=== PATIENT | female | born 1980 | race Caucasian/White ===

== ENCOUNTER 2020-06-13 15:03 | Emergency (ER) | payer OTHER, SELFPAY ==
[2020-06-13 16:02] VITALS: BP 209/129; PULSE 93; RESP 16; TEMP 36.7; O2SAT 100; BMI 23.0
--- NOTE | 2020-06-13 16:03 | ED.SKABFB ---
HPI - Skin/Abscess/Foreign Bdy General Chief complaint: Skin/Abscess/Foreign Body Stated complaint: cyst stomach area Time Seen by Provider: 06/13/20 16:03 Source: patient Mode of arrival: ambulatory Limitations: no limitations History of Present Illness HPI narrative: Patient concerned that she has an abscess to her abdomen, has been squeezing but nothing will come out complaint: abscess/boil Onset (ago): day(s) Tetanus up to date: yes Severity: mild Related Data Previous Rx's Medication Instructions Recorded cephalexin [Keflex] 500 mg PO QID #28 cap 06/13/20 Allergies Allergy/AdvReac Type Severity Reaction Status Date / Time erythromycin base AdvReac Unknown VOMITING Verified 06/13/20 16:10 [From ERYTHROCIN] shellfish derived AdvReac Unknown VOMITING Verified 06/13/20 16:10 [SHELLFISH DERIVED] Review of Systems Constitutional: Constitutional: Reports no additional constitutional complaints Eyes: Eyes: Reports no additional eye complaints ENT: Denies dizziness Cardiovascular: Cardiovascular: Reports no additional cardiovascular complaints Respiratory: Respiratory: Reports as per HPI Gastrointestinal: Gastrointestinal: Reports no additional gastrointestinal complaints Genitourinary: Genitourinary: Reports no additional female genitourinary complaints Musculoskeletal: Musculoskeletal: Reports no additional musculoskeletal complaints Integumentary/Breasts: Skin/Breast: Denies rash Neurologic: Reports system reviewed and no additional complaints, except as documented, Denies dizziness and Denies Sensory deficit (Neuro) Psychiatric: Psychiatric: Reports anxiety [facility] Past Medical History Medical History Acute anxiety Depression HTN (hypertension) Social History Social History Smoking Status: Former smoker Smoked in Last 30 Days: No Use of substances other than those prescribed or required for medical reasons: No Physical Exam Const: Other: anxious General: healthy appearing Nutritional Appearance: average body habitus Orientation/consciousness: oriented to person and patient oriented x3 Limitations: no limitations HENMT: Head: Yes normal to inspection Ears: external ears normal General nose exam: Normal external nose present Mouth: Normal oral and palatal mucosa present and oropharynx normal Throat: Yes posterior oropharynx normal Eyes: General: appearance normal, both eyes and all related structures Neck: Other: supple Neck: Yes normal visual inspection Chest: Chest palpation & inspection: normal inspection of the chest Resp: Auscultation: clear to auscultation bilaterally Cardio: Jugular venous distension: no JVD Rate: regular rate Rhythm: regular rhythm Heart sounds: S1 normal heart sound present and S2 normal heart sound present GI: Inspection: Yes normal to inspection Palpation (GI): Soft to palpation, nontender and No hepatosplenomegaly present Auscultation: normal bowel sounds : General: Yes no CVA tenderness Back/Spine/Pelvis: Back: no CVA tenderness Skin: Other: erythema to abdomen with small pustule, bedside ultrasound reveals not fluid collection Neuro: General: oriented to person and patient oriented x3 Cranial nerves: Yes CN's II-XII intact bilaterally Motor exam (neuro): 5/5 motor strength present throughout Sensory Exam: No Sensory deficit (Neuro) Extrem: General: Yes normal to inspection Psych: Appearance: grossly normal Course Course Course Narrative: no fluid collection on bedside ultrasound will place on keflex and warm soaks MDM - Skin/Abscess/Foreign Bdy MDM Narrative Medical decision making narrative: small localized papule with slight erythema Discharge Plan Discharge Clinical Impression: Cellulitis Patient Disposition: Home, Self-Care Instructions: Cellulitis (ED), Abscess (ED) Additional Instructions: warm compresses to affected area. Follow up with your doctor for your blood pressure Prescriptions: New cephalexin [Keflex] 500 mg capsule 500 mg PO QID Qty: 28 RF: 0 Referrals: Physician,None [Primary Care Provider] - 2 days
[2020-06-13 16:50] VITALS: BP 160/90
== END 2020-06-13 17:02 | disposition home or self-care (01) ==
LOC: HO.ED 16:21
PROVIDERS: Emergency Provider Emergency Medicine; PCP Nurse Practitioner
DX: L03.311 Cellulitis of abdominal wall (principal); I10 Essential (primary) hypertension; Z79.899 Other long term (current) drug therapy; Z87.891 Personal history of nicotine dependence
CPT/HCPCS: 99283; 99284

== ENCOUNTER 2021-08-05 05:30 | Emergency (ER) | payer OTHER, SELFPAY ==
[2021-08-05 05:32] VITALS: BP 148/87; PULSE 106; RESP 16; TEMP 36.9; O2SAT 96; BMI 24.7
[2021-08-05 06:11] LABS: COVID-19 Test Negative (Negative); IDNOW Serial# 9DD0AD1C
--- NOTE | 2021-08-05 07:01 | ED_ITS ---
HPI - General Adult General Chief complaint: Fever Stated complaint: COVID Symptoms Time Seen by Provider: 08/05/21 06:57 Source: patient Mode of arrival: ambulatory Limitations: no limitations History of Present Illness HPI narrative: Patient comes to the emergency room complaining of loss of taste, body aches, subjective fever. All of patient's symptoms started yesterday. Patient has been taking Tylenol and ibuprofen alternating for symptom control. Patient denies shortness of breath, no chest pain, no dizziness. Related Data Previous Rx's Medication Instructions Recorded cephalexin 500 mg capsule (Keflex) 500 mg PO QID #28 cap 06/13/20 Allergies Allergy/AdvReac Type Severity Reaction Status Date / Time erythromycin base AdvReac Unknown VOMITING Verified 06/13/20 16:10 [From ERYTHROCIN] shellfish derived AdvReac Unknown VOMITING Verified 06/13/20 16:10 [SHELLFISH DERIVED] Review of Systems Review of Systems: Constitutional : No Weight loss, complaining of subjective fever, chills, fatigue and generalized malaise ENT/Mouth : No Hearing loss, No Ear Pain, No Nasal Congestion, No Sinus Pain, No Hoarseness, No sore throat, No Rhinorrhea, No Swallowing Difficulty, complaining of loss of taste Eyes: No Eye Pain, No Swelling, No Redness, No Foreign Body, No Discharge, No Vision Changes Cardiovascular : No Chest Pain, No SOB, No Dyspnea on Exertion, No Orthopnea, No Edema, No Palpitations Respiratory : No Cough, No Sputum, No Wheezing, No Smoke Exposure, No Dyspnea Gastrointestinal : No Nausea, No Vomiting, No Diarrhea, No Constipation, No abdominal Pain, No Hematochezia, No Melena Genitourinary : no irregular bleeding, No Dysuria, No Urinary Frequency, No Hematuria, No Urinary Incontinence, No Urgency, No Flank Pain, No Urinary Flow Changes, No Hesitancy Musculoskeletal : No joint pain, No Myalgias, No Joint Swelling Skin : No Skin Lesions, No rash Neuro : No Weakness, No Numbness, No Paresthesias, No Loss of Consciousness, No Dizziness, No Headache Psych : No Anxiety/Panic, No Depression, No SI/HI/AH/VH, No Social Issues, Heme/Lymph: No Bruising, No Bleeding,No Lymphadenopathy Endocrine : No Polyuria, No Polydipsia, No Temperature Intolerance [facility] Past Medical History Medical History Acute anxiety Depression HTN (hypertension) Social History Social History Advance Directives: No Advance Directives Information Provided: Yes Patient : No Physical Exam Vital Signs: Vital Signs: Last Vital Signs Temp 98.4 F 08/05/21 05:32 Pulse 106 H 08/05/21 05:32 Resp 16 08/05/21 05:32 BP 148/87 H 08/05/21 05:32 Pulse Ox 96 08/05/21 05:32 BMI result Body Mass Index 24.7 Const: Other: Appearance: Alert. Oriented X3. No acute distress. Eyes: Pupils equal, round and reactive to light. ENT: Pharynx normal. Neck: Normal inspection. Neck supple. No lymph nodes noted. No crepitus CVS: Normal heart rate and rhythm. Pulses normal. Normal S1 and S2, heart rate 80 Respiratory: No respiratory distress. Breath sounds normal. No Wheezing. No rales Abdomen: Soft and nontender. No rigidity. No distention. Skin: Skin warm and dry. Normal skin color. Normal skin turgor. Extremities: No lower extremity edema. No Lacerations. No Rash Neuro: Oriented X 3. No motor deficit. No sensory deficit. Moving all extermities. No slurred speech. Course Course Course Narrative: Patient's COVID test was negative. However, it may be a false negative. Patient will likely need to be retested in couple of days. Medical Decision Making Lab Data Labs: Lab Results 08/05/21 Range/Units 05:51 COVID-19 ([facility]) Negative (Negative) COVID-19 Clin Com See Note Discharge Plan Discharge Clinical Impression: Acute viral syndrome Patient Disposition: Home, Self-Care Instructions: Viral Syndrome (ED) Additional Instructions: Please follow-up with your primary care physician tomorrow. Please get retested for COVID 19 in couple of days. you have any worsening or new symptoms, please return to the emergency room or call 911 Prescriptions: No Action cephalexin [Keflex] 500 mg capsule 500 mg PO QID Qty: 28 RF: 0 Stand Alone Forms: Work/School Release
== END 2021-08-05 07:51 | disposition home or self-care (01) ==
PROVIDERS: Emergency Provider Emergency Medicine
DX: B34.9 Viral infection, unspecified (principal); I10 Essential (primary) hypertension; Z20.822 Contact with and (suspected) exposure to COVID-19
CPT/HCPCS: 36415; 87635; 99283

== ENCOUNTER 2021-09-14 17:24 | Emergency (ER) | payer MEDICAID, SELFPAY ==
--- NOTE | ~2021-09-14 | XR_ITS ---
EXAMINATION: XR ANKLE, RIGHT CLINICAL INFORMATION: Right ankle pain COMPARISON: None TECHNIQUE: AP, lateral, and mortise views of the right ankle. FINDINGS: The bones and soft tissues are normal. No fracture. Alignment is anatomic. Joint spaces are maintained. No joint effusion. XR/XR ankle RT 2V IMPRESSION: Normal right ankle.
[2021-09-14 17:26] VITALS: BP 224/102; PULSE 72; RESP 18; TEMP 37; O2SAT 97; BMI 25.6
--- NOTE | 2021-09-14 18:11 | ED_ITS ---
HPI - Extremity Injury (Lower) General Chief Complaint: Extremity Injury, Lower Stated Complaint: fell at home- ankle pain Time Seen by Provider: 09/14/21 18:11 Source: patient Mode of arrival: ambulatory Limitations: no limitations History of Present Illness HPI Narrative: 40 y/o female presents to ER with right ankle pain after she rolled it at home earlier today. She reports severe pain and difficulty walking. The pain is mostly located on the outside of her right ankle, worse with dorsiflexion and palpation. She has some bruising of the foot and ankle as well as some swelling. She works as a informal waiter/waitress and is worried how she is going to go back to work this week. She was found to be severly hypertensive on arrival. She denies being on meds and denies any chest pain, headaches or vision changes. MD complaint: ankle injury Onset (ago): hour(s) Injury: Right: hip Type of Injury: inversion Place: home Severity: moderate Relieving factors: nothing Exacerbating factors: weight bearing, movement and palpation Context: fall and walking Associated symptoms: swelling and able to partially bear weight Other symptoms: none Related Data Previous Rx's Medication Instructions Recorded cephalexin 500 mg capsule (Keflex) 500 mg PO QID #28 cap 06/13/20 amlodipine 10 mg tablet (Norvasc) 10 mg PO DAILY #30 tab 09/14/21 Allergies Allergy/AdvReac Type Severity Reaction Status Date / Time erythromycin base AdvReac Unknown VOMITING Verified 06/13/20 16:10 [From ERYTHROCIN] shellfish derived AdvReac Unknown VOMITING Verified 06/13/20 16:10 [SHELLFISH DERIVED] Review of Systems Verdana 4l Review of Systems: Verdana 4d Verdana 4d Constitutional: No Fever, No Chills Eyes: No Eye Pain, No vision changes Cardiovascular: No Chest Pain, No SOB Gastrointestinal: No Nausea, No Vomiting, No Diarrhea, No abdominal Pain Musculoskeletal: + joint pain, No Myalgias Skin: No SkinSkin Lesions, No rash Neuro: No Weakness, No Numbness, No Dizziness, No Headache Psych: No Anxiety/Panic, No Depression Heme/Lymph: + Bruising, No Lymphadenopathy PMFSH Past Medical History Medical History Acute anxiety Depression HTN (hypertension) Social History Social History Advance Directives: No Advance Directives Information Provided: No Patient : No Physical Exam Verdana 4l Vital Signs: Verdana 4d Verdana 4d Vital Signs: Verdana 4d Verdana 4Bd Last Vital Signs Verdana 4d Hooker On New 4d Hooker On New 4d Temp 98.6 F 09/14/21 17:26 [place] New 4d Pulse 88 09/14/21 20:29 [place] New 4d Resp 18 09/14/21 17:26 BP 196/108 H 09/14/21 20:29 Pulse Ox 97 09/14/21 20:29 BMI result Body Mass Index 25.6 Appearance: Alert. Oriented X3. No acute distress. HEENT: normal inspection CVS: Normal heart rate and rhythm. Pulses normal. Respiratory: No respiratory distress. Skin: Skin warm and dry. Normal skin color. Normal skin turgor. No rashes. Extremities: ecchymosis and swelling of the lateral ankle and proximal aspect of the foot. tender to palpation. normal plantarflexion with difficutly dorsiflexing. 2+ pulse, no sensory deficit. Neuro: Oriented X 3. No motor deficit. No sensory deficit. Gait not tested due to pain Course Course Course Narrative: 40 y/o female presenting with right ankle pain after she twisted it earlier today. Found to have severe HTN on arrival with BP 220/100. She denies chest pain, dizziness, headache, or vision changes. She has known history of hypertension but denies being on any medications for this. She states her blood pressure is always high but not this high. Upon review of her records she has had elevated BP of 209/129 back in Jun 2020. She does not have a PCP. HTN is most likely multifactorial in the setting of acute pain. Will give tylenol and reassess (she drove here and wants to drive home). Reevaluation(s) Reevaluation #1: 7:00 - BP remains elevated after Tylenol, it actually trended up. Will check basic labs and UA. Will continue to monitor BP closely. Hold off on IV antihypertenisves at this time. 8:00 - UA and labs unremarkable. 9: 00 - BP after Norvasc 10 mg remains elevated however improved - 188/117. She continues to deny symptoms. Her BP has improved 25%. Do not want to drop further for risk of decreased cerebral perfusion. At this time patient is stable for discharge home with plan to follow up at the clinic this week. She will get a BP cuff and monitor her pressures 2x per day. Will give Rx for Norvasc 10 mg per day with 1 month refill in the event she cannot get seen promptly. She was advised to return to the ER if she develops chest pain, headaches or vision changes. Comfortable w/ d/c home. Patient agrees with plan and expressed understanding in importance of follow up. Case d/w Dr. Huff MDM - Extremity Injury (Lower) Lab Data Result diagrams: 09/14/21 19:25 09/14/21 19:25 Labs: Lab Results 09/14/21 09/14/21 09/14/21 Range/Units 19:25 19:25 19:28 WBC 9.2 (4.8-10.8) X10*3/uL RBC 4.50 (4.20-5.50) X10*6/uL Hgb 14.3 (12.0-16.0) g/dl Hct 40.6 (37.0-47.0) % MCV 90.2 (80.0-98.0) fL MCH 31.8 (27.0-33.0) pg MCHC 35.2 H (31.0-35.0) g/dl RDW 12.1 (11.0-16.0) % Plt Count 240 (160-400) X10*3/uL MPV 9.2 L (9.4-12.3) fL Immature Gran % (Auto) 0.2 (0.0-0.4) % Neut % (Auto) 69.4 (45-73) % Lymph % (Auto) 21.9 (20-40) % [place] % (Auto) 5.8 (2-11) % Eos % (Auto) 1.7 (0-4) % Baso % (Auto) 1.0 (0-2) % Lymph # (Auto) 2.0 (1.2-4.9) X10*3/uL [place] # (Auto) 0.5 (0.1-1.2) X10*3/uL Eos # (Auto) 0.2 (0.0-0.4) X10*3/uL Baso # (Auto) 0.1 (0.0-0.2) X10*3/uL Abs Immat Gran (auto) 0.02 (0.00-0.03) X10*3/uL Absolute Neuts (auto) 6.4 (2.0-8.3) x10*3/uL Absolute Nucleated RBC 0.000 (0.0-0.012) X10*3/uL Nucleated RBC % (auto) 0.0 (0.0-0.2) /100WBC Sodium 139 (135-145) mmol/L Potassium 3.9 (3.3-5.1) mmol/L Chloride 106 (96-108) mmol/L Carbon Dioxide 26 (22-29) mmol/L Anion Gap 11 L (12-20) BUN 13 (9-16) mg/dL Creatinine 0.81 (0.5-1.4) mg/dL Estim Creat Clear Calc 79.1 Estimated GFR > 60 Random Glucose 93 (60-115) mg/dL Calcium 9.4 (8.4-10.2) mg/dL Hold Red Top See Note Urine Color Urine Appearance Urine pH (5.0-8.0) Ur Specific [place] (1.005-1.025) Urine Protein (NEG-TRACE) MG/DL Urine Glucose (UA) (NEG) MG/DL Urine Ketones (NEG) MG/DL Urine Blood (NEG) Urine Nitrite (NEG) Ur Leukocyte Esterase (NEG) 09/14/21 Range/Units 19:41 WBC (4.8-10.8) X10*3/uL RBC (4.20-5.50) X10*6/uL Hgb (12.0-16.0) g/dl Hct (37.0-47.0) % MCV (80.0-98.0) fL MCH (27.0-33.0) pg MCHC (31.0-35.0) g/dl RDW (11.0-16.0) % Plt Count (160-400) X10*3/uL MPV (9.4-12.3) fL Immature Gran % (Auto) (0.0-0.4) % Neut % (Auto) (45-73) % Lymph % (Auto) (20-40) % [place] % (Auto) (2-11) % Eos % (Auto) (0-4) % Baso % (Auto) (0-2) % Lymph # (Auto) (1.2-4.9) X10*3/uL [place] # (Auto) (0.1-1.2) X10*3/uL Eos # (Auto) (0.0-0.4) X10*3/uL Baso # (Auto) (0.0-0.2) X10*3/uL Abs Immat Gran (auto) (0.00-0.03) X10*3/uL Absolute Neuts (auto) (2.0-8.3) x10*3/uL Absolute Nucleated RBC (0.0-0.012) X10*3/uL Nucleated RBC % (auto) (0.0-0.2) /100WBC Sodium (135-145) mmol/L Potassium (3.3-5.1) mmol/L Chloride (96-108) mmol/L Carbon Dioxide (22-29) mmol/L Anion Gap (12-20) BUN (9-16) mg/dL Creatinine (0.5-1.4) mg/dL Estim Creat Clear Calc Estimated GFR Random Glucose (60-115) mg/dL Calcium (8.4-10.2) mg/dL Hold Red Top Urine Color YELLOW Urine Appearance CLEAR Urine pH 7.5 (5.0-8.0) Ur Specific [place] 1.010 (1.005-1.025) Urine Protein NEG (NEG-TRACE) MG/DL Urine Glucose (UA) NEG (NEG) MG/DL Urine Ketones NEG (NEG) MG/DL Urine Blood NEG (NEG) Urine Nitrite NEG (NEG) Ur Leukocyte Esterase NEG (NEG) Critical Care Time Critical Care Time Critical Care Time: Yes Total Critical Care Time: 35 Attestation: I have personally provided critical care time exclusive of time spent on separately billable procedures. Time includes review of lab data, radiology results, discussion with attending physician, and monitoring for potential decompensation. Intervention performed as documented. Discharge Plan Discharge Clinical Impression: Ankle sprain and strain, Hypertension Patient Disposition: Home, Self-Care Instructions: Ankle Sprain (DC), DASH Eating Plan (ED), Hypertension (ED) Additional Instructions: Your x-ray today was normal. Rest your ankle and elevate your foot when possible. Recommend CINTHIA wrap for support and compression. Use ice several times per day for the next 48 hours. You may bear weight as tolerated. If pain is too severe, use crutches until better. Take Motrin and/or Tylenol as needed for pain. Your blood pressure was significantly elevated today - recommend following up with your doctor this week. Recommend getting a blood pressure cuff and monitoring your BP two times per day at home and recording it for your doctor. Take the prescribed medication every day for your blood pressure Limit your salt intake - see the attached information on diet to help lower BP Follow up with your doctor this week. Prescriptions: New amlodipine [Norvasc] 10 mg tablet 10 mg PO DAILY Qty: 30 1RF No Action cephalexin [Keflex] 500 mg capsule 500 mg PO QID Qty: 28 0RF Stand Alone Forms: Work/School Release
[2021-09-14 18:46] VITALS: BP 179/113; PULSE 86
[2021-09-14 18:55] VITALS: BP 204/111; PULSE 96
[2021-09-14] MEDS: Acetaminophen 325 MG TABLET 975 MG PO (19:06)
[2021-09-14 19:25] VITALS: BP 222/120; PULSE 99
[2021-09-14 19:30] LABS: MANUAL DIFF FLAG NO
[2021-09-14 19:31] LABS: Basophils Absolute Auto 0.1 X10*3/uL (0.0-0.2); Eosinophils Absolute Auto 0.2 X10*3/uL (0.0-0.4); Eosinophils Percent Auto 1.7 % (0-4); Hematocrit 40.6 % (37.0-47.0); Hemoglobin 14.3 g/dl (12.0-16.0); Imm Gran Abs Auto 0.02 X10*3/uL (0.00-0.03); Imm Gran Pct Auto 0.2 % (0.0-0.4); Lymphocytes Percent Auto 21.9 % (20-40); Mean Corpuscular HGB Conc 35.2 g/dl (31.0-35.0); Mean Corpuscular Hemoglobin 31.8 pg (27.0-33.0); Mean Corpuscular Volume 90.2 fL (80.0-98.0); Mean Platelet Volume 9.2 fL (9.4-12.3); Monocytes Absolute Auto 0.5 X10*3/uL (0.1-1.2); Monocytes Percent Auto 5.8 % (2-11); Neutrophils Absolute Auto 6.4 x10*3/uL (2.0-8.3); Neutrophils Percent Auto 69.4 % (45-73); Platelet Count 240 X10*3/uL (160-400); Red Cell Distribution Width 12.1 % (11.0-16.0); White Blood Count 9.2 X10*3/uL (4.8-10.8)
[2021-09-14] MEDS: amLODIPine Besylate 10 MG TABLET PO (19:34)
[2021-09-14 19:48] LABS: Appearance Urine CLEAR; Color Urine YELLOW; Glucose Urine UA NEG (NEG); Leukocyte Esterase Urine NEG (NEG); Nitrite Urine NEG (NEG); PH 7.5 (5.0-8.0); Urine Blood NEG (NEG); Urine Ketones NEG (NEG); Urine Protein NEG (NEG-TRACE)
[2021-09-14 19:48] LABS: Anion Gap 11 (12-20); Blood Urea Nitrogen 13 mg/dL (9-16); Calcium 9.4 mg/dL (8.4-10.2); Carbon Dioxide 26 mmol/L (22-29); Chloride 106 mmol/L (96-108); Creatinine Clr Calc Pharmacy 79.1; Estimated Glomerular Filt Rate > 60; Glucose Random 93 mg/dL (60-115); Potassium 3.9 mmol/L (3.3-5.1); Sodium 139 mmol/L (135-145)
[2021-09-14 20:29] VITALS: BP 196/108; PULSE 88; O2SAT 97
[2021-09-14 21:04] VITALS: BP 180/110
--- NOTE | 2021-09-14 21:08 | PC.NURSE ---
CELY HASSAN AWARE OF BP 180/110 MANUALLY. PT ASYMPTOMATIC. OK TO D/C.
== END 2021-09-14 21:26 | disposition home or self-care (01) ==
PROVIDERS: Physician Assistant; Emergency Provider Emergency Medicine Emergency Medical Services
DX: S93.401A Sprain of unspecified ligament of right ankle, initial encounter (principal); M25.571 Pain in right ankle and joints of right foot; I10 Essential (primary) hypertension; W01.0XXA Fall on same level from slipping, tripping and stumbling without subsequent striking against object, initial encounter; Y93.9 Activity, unspecified; Y92.9 Unspecified place or not applicable; Y99.9 Unspecified external cause status; Z79.899 Other long term (current) drug therapy
CPT/HCPCS: 36415; 73600; 80048; 81003; 85025; 99284